=== PATIENT | male | born 1985 | race Caucasian/White ===

== ENCOUNTER 2017-11-01 18:16 | Emergency (ER) | payer MEDICAID ==
[~2017-11-01] VITALS: Ht 177.8 cm; Wt 77.1 kg
[2017-11-01 18:27] VITALS: BP 149/79
--- NOTE | 2017-11-01 19:04 | NUR ---
PT AMBULATED TO BED 3
--- NOTE | 2017-11-01 19:15 | NUR ---
32/M CAME IN W C/O 11/16 SUBSTERNAL CHEST PAIN, NONPROVOKED, NONRADIATING X 2 DAYS AGO. PT DENIES ANY PAIN AT THIS TIME, DENIES ANY SOB/COUGH, N/V/D. SKIN IS WARM AND DRY. PT STATES " MAYBE ITS THE STRESS FROM WORK" . PT ALSO STATES " I BROKE MY WISDOM TOOTH AND THAT IS PROBABLY CAUSING THE FACIAL PAIN". ALL LUNG SOUNDS CBTA, 16RR EVEN AND UNLABORED. PT PLACED ON MANAGER OF COMPENSATION.
--- NOTE | 2017-11-01 20:42 | NUR ---
Patient appears to be resting comfortably in bed. Vital Signs within normal limits. Respirations even and unlabored.
--- NOTE | 2017-11-01 20:55 | NUR ---
Patient discharged with v/s stable. Written and verbal after care instructions given and explained. Patient verbalized understanding. Ambulatory with steady gait. All questions addressed prior to discharge. Advised to follow up with PMD.
[2017-11-01 20:57] VITALS: BP 134/92
== END 2017-11-01 20:55 | disposition home or self-care (01) ==
LOC: MED 18:16
DX: M79.1 Myalgia (principal); Z90.89 Acquired absence of other organs
CPT/HCPCS: 71045; 93005; 99284; Q0092